=== PATIENT | female | born 1970 | race Caucasian/White ===

== ENCOUNTER 2021-06-19 21:10 | Inpatient (IN) | payer OTHER, SELFPAY ==
[2021-06-19 21:13] VITALS: BP 133/100; PULSE 98; RESP 18; TEMP 36.1; O2SAT 100; BMI 23.1
--- NOTE | 2021-06-19 22:03 | CT_ITS ---
STUDY: CT ABDOMEN AND PELVIS WITH CONTRAST REASON FOR EXAM: Female, 51 years old. abdominal pain RADIATION DOSAGE (If Supplied By Facility): CTDIvol = ( 10.89 ) mGy, DLP = ( 918.71 ) mGycm TECHNIQUE: Transaxial images were obtained from the dome of the diaphragm to the symphysis pubis without oral contrast. IV 100mL Isovue-300 was administered. Sagittal and coronal images were reconstructed. Individualized dose optimization techniques were used for this CT. COMPARISON: None. FINDINGS: The visualized lung bases are unremarkable. The visualized portions of the heart are within normal limits. 13 mm target lesion right lobe of the liver. gallstone. Normal spleen. There is diffuse enlargement of the pancreas with codey-pancreatic edema suggesting acute pancreatitis. Moderate fluid noted throughout the abdomen. No pseudocyst. Normal enhancement of the pancreas. 1.3 cm left adrenal nodule. Right adrenal normal. Normal right kidney. Normal left kidney. Normal visualized stomach. Oral contrast within the small bowel. Oral contrast noted in the colon. Appendix is not clearly identified. Normal abdominal aorta. Normal inferior vena cava. Normal retroperitoneum. Retroaortic left renal vein. Bladder decompressed. Normal abdominal wall. Normal osseous structures. CT/Abdomen/Pelvis W IV Cont ONLY IMPRESSION: Probable acute gallstone pancreatitis. Moderate free fluid. Incidental hepatic lesion as noted above. Recommend follow-up nonemergent hepatic MRI. Left adrenal adenoma. Electronically Signed: Marshall Warren MD at 0:00 EDT , Service support ,
--- NOTE | 2021-06-19 22:08 | EKG12_ITS ---
Test Reason : DYSRYTHMIA Blood Pressure : / mmHG Vent. Rate : 082 BPM Atrial Rate : 082 BPM P-R Int : 112 ms QRS Dur : 082 ms QT Int : 408 ms P-R-T Axes : 034 043 059 degrees QTc Int : 476 ms Normal sinus rhythm Normal ECG Confirmed by ENE HOLLIS, FREDI ([id number]), image editor TRAV FELIX ([id number]) on 06/22/2021 9:31:23 AM Referred By: KEON Confirmed By:FREDI LUQUE MD
--- NOTE | 2021-06-19 22:08 | ED.VIS.GI ---
HPI HPI - GI History of Present Illness Chief Complaint: Abd Pain Informant: patient Narrative Narrative: Patient is a 51-year-old female with history of kidney stones and hypertension presenting with abdominal pain. Patient states yesterday she was feeling like she was having acid reflux and was belching. Last night the pain moved to her epigastric region. She states since then she has had constant pain in her abdomen. She states now the pain is also in her mid/lower abdomen. She states she had some also stated back pain and that part feels like a kidney stone. She notes her urine has been darker but has not noticed any blood. Denies any other urinary symptoms. Has been feeling bloated had associated vomiting. She not really been able to eat or drink too much today. Is not had any blood in her vomit. Is not had any change in her bowel habits and denies any black or blood in her stool. She denies any chest pain but does feel mildly short of breath but contributes that to her pain. She describes the pain is constant, sharp and pressure. She had a hysterectomy and the past so she does not have any menstrual cycles. She tried [id number] antacids with no relief of her symptoms that she came to the emergency room. Prior similar symptoms: No PFSH PFSH Medical History (Updated 06/20/21 @ 06:[address] Blanka Sampson DO) Hypertension Home Medications losartan 100 mg PO DAILY 06/19/21 [History Last Taken 06/19/21] hydrochlorothiazide 12.5 mg PO DAILY 06/20/21 [History Last Taken 06/19/21] Allergy/AdvReac Type Severity Reaction Status Date / Time No Known Allergies Allergy Verified 06/20/21 01:51 Social History Smoking Status: Never smoker ROS ROS ED Constitutional Constitutional ED: Denies chills, fever(s), malaise, sweats or weight loss Eyes Eyes: Denies blurry vision or loss of vision ENT ENT ED: Denies rhinorrhea or sore throat Cardiovascular Cardiovascular: Denies chest pain or dizziness Respiratory/Chest Respiratory/Chest: Denies cough or dyspnea Gastrointestinal Gastrointestinal: Reports abdominal pain, nausea and vomiting; Denies constipation, diarrhea or melena Genitourinary Genitourinary ED: Denies dysuria, hematuria or urinary frequency Musculoskeletal Musculoskeletal: Denies arthralgias or myalgias Integumentary Denies rash or wounds Neurologic Neurologic: Denies focal weakness, headache(s) or weakness Psychiatric Psychiatric: Denies anxiety or behavioral changes EXAM Physical Exam Const Vital Signs: 06/19/21 21:13 06/20/21 00:30 Temperature 96.9 F L Temperature Source Temporal Pulse Rate 98 83 Respiratory Rate 18 16 Blood Pressure 133/100 H 161/100 H Blood Pressure Mean 111 120 Pulse Ox 100 99 Oxygen Delivery Method Room Air Room Air Positive well nourished and well developed General Appearance ED: well developed HEENT Reports moist mucous membranes normocephalic Eyes PERRL and EOMs intact bilaterally Neck supple and no JVD Resp normal respiratory effort and clear to auscultation bilaterally Cardio regular rate, regular rhythm and no murmurs GI non-distended and no masses GI Narrative: Mild pain at McBurney's point as well as in the epigastric region. No rebound tenderness or guarding. Negative Hutton sign. Inspection: Negative for abdominal distention Palpation: soft; Negative for guarding or rigid Back/Spine no CVA tenderness Neuro Sensorium / Orientation: alert, oriented to person, oriented to place and oriented to time Motor Exam: strength 5/5 throughout; Negative for general weakness Psych mental status grossly normal Skin Lesions: no lesions Rashes: no rashes MDM MDM MDM Narrative Medical decision making narrative: Patient is evaluated for worsening epigastric pain. She appears nontoxic in no acute distress. She is tender especially in her epigastric region. She is given IV Zofran, morphine and fluids in the ER. She is hemodynamically stable. Cardiac work-up is unremarkable and nothing this is referred cardiac pain. CBC is normal. CMP is remarkable for mild transaminitis and her lipase is significantly elevated at 5838. I suspect pancreatitis is the cause of her pain. Patient denies any alcohol use. CT of the abdomen and pelvis is concerning for gallstone pancreatitis. Patient is redosed with morphine in the ER and she will be admitted to surgical service for further management of her suspected gallstone pancreatitis. Patient is agreeable with this plan of care. She is hemodynamically stable in the emergency room. Lab Data Attestation: I reviewed the patient's lab results. Labs: Laboratory Results - last 24 hr 06/19/21 06/19/21 06/19/21 22:22 22:22 22:22 WBC 7.2 RBC 3.59 L Hgb 13.6 Hct 39.8 MCV 110.9 H MCH 37.9 H MCHC 34.2 RDW Std Deviation 57.3 H RDW Coeff of Carmela 13.8 Plt Count 211 MPV 9.7 Immature Gran % (Auto) 0.300 Neut % (Auto) 88.6 H Lymph % (Auto) 4.6 L [place] % (Auto) 6.1 Eos % (Auto) 0.0 Baso % (Auto) 0.4 Absolute Neuts (auto) 6.3 Absolute Lymphs (auto) 0.33 L Nucleated RBC % 0 Differential Comment SCANNED Sodium 140 Potassium 3.9 Chloride 100 Carbon Dioxide 33.0 H Anion Gap 7 BUN 13 Creatinine 0.79 Estim Creat Clear Calc 73.57 Est GFR (MDRD) Af Amer 100 Est GFR (MDRD) Non-Af 82 BUN/Creatinine Ratio 16.5 Glucose 127 H Calcium 9.3 Total Bilirubin 0.60 Direct Bilirubin 0.19 AST 153 H ALT 94 H Alkaline Phosphatase 197 H Troponin I High Sens 11 Total Protein 7.3 Albumin 2.7 L Globulin 4.6 H Lipase 5838 H Serum , Qual NEGATIVE Urine Color Urine Clarity Urine pH Ur Specific [place] Urine Protein Urine Glucose (UA) Urine Ketones Urine Occult Blood Urine Nitrite Urine Bilirubin Urine Urobilinogen Ur Leukocyte Esterase Urine RBC Urine WBC Ur Squamous Epith Cells Urine Bacteria Urine Mucus 06/19/21 22:55 WBC RBC Hgb Hct MCV MCH MCHC RDW Std Deviation RDW Coeff of Carmela Plt Count MPV Immature Gran % (Auto) Neut % (Auto) Lymph % (Auto) [place] % (Auto) Eos % (Auto) Baso % (Auto) Absolute Neuts (auto) Absolute Lymphs (auto) Nucleated RBC % Differential Comment Sodium Potassium Chloride Carbon Dioxide Anion Gap BUN Creatinine Estim Creat Clear Calc Est GFR (MDRD) Af Amer Est GFR (MDRD) Non-Af BUN/Creatinine Ratio Glucose Calcium Total Bilirubin Direct Bilirubin AST ALT Alkaline Phosphatase Troponin I High Sens Total Protein Albumin Globulin Lipase Serum , Qual Urine Color Yellow Urine Clarity Cloudy Urine pH 7.0 Ur Specific [place] 1.015 Urine Protein 30 H Urine Glucose (UA) Normal Urine Ketones 50 H Urine Occult Blood 10 H Urine Nitrite Negative Urine Bilirubin 1 H Urine Urobilinogen 1 H Ur Leukocyte Esterase 100 H Urine RBC 0-5 SEEN Urine WBC 5-10 SEEN Ur Squamous Epith Cells 10-25 SEEN Urine Bacteria 0 SEEN Urine Mucus 0 SEEN Radiography Diagnostic Testing: Clinical Impression(s) from Imaging Studies Abdomen/Pelvis CT 06/19/21 22:03 IMPRESSION: Probable acute gallstone pancreatitis. Moderate free fluid. Incidental hepatic lesion as noted above. Recommend follow-up nonemergent hepatic MRI. Left adrenal adenoma. Electronically Signed: Marshall Warren MD at 0:00 EDT , Service support , Rhythm Strip Rhythm Strip: Sinus Rhythm Rate: 82 Ectopy: None EKG Initial EKG: Attestation: I personally reviewed and interpreted this EKG as follows: Interpretation: Sinus Rhythm Comments: Normal sinus rhythm at a rate of 82 Normal axis Normal intervals Normal ST segments Discharge Plan Dx/Rx/DC Orders Clinical Impression: Hypertension, Acute gallstone pancreatitis Disposition Disposition: Acute Care Hospital [facility] Discharge Date/Time: 06/20/21 01:46
[2021-06-19 22:43] LABS: Absolute Lymphocyte Count 0.33 X10^3/uL (0.83-4.51); Absolute Neutrophil Count 6.3 X10^3/uL (2.0-7.7); Basophil# 0.03 X10^3/uL; Basophil% 0.4 % (0-1); Hematocrit 39.8 % (37-47); Hemoglobin 13.6 g/dL (12.0-15.0); Lymphocyte # 0.33 X10^3/ul (0.83-4.51); Lymphocyte % 4.6 % (19-41); Mean Corp Hgb Conc 34.2 g/dL (32-36); Mean Corpuscular Hgb 37.9 pg (27.0-32.0); Mean Corpuscular Volume 110.9 fL (81-99); Mean Platelet Vol. 9.7 fl (6.2-12.0); Monocyte# 0.44 X10^3/uL; Monocyte% 6.1 % (0-10); NRBC Flagged by Analyzer 0 % (0-5); Neutrophil # 6.34 X10^3/uL (2.7-7.7); Neutrophil % 88.6 % (47-70); POSITIVE DIFFERENTIAL YES; Platelet Count 211 K/mm3 (150-450); RBC Distribution Width CV 13.8 % (11.6-14.6); RBC Distribution Width SD 57.3 fl (35.1-43.9); Red Blood Count 3.59 M/mm3 (4.2-5.4); White Blood Count 7.2 K/mm3 (4.4-11.0)
[2021-06-19 22:45] LABS: Differential Indicated SCAN CRITERIA MET
[2021-06-19] MEDS: 0.9% Normal Saline 1,000 ML 1000 ML IV (22:51)
[2021-06-19] MEDS: Ondansetron 4 MG/2 ML Vial IV (22:52)
[2021-06-19] MEDS: Morphine 4 MG/ML Syringe IV (22:52)
[2021-06-19 22:55] LABS: AST(SGOT) 153 U/L (15-37); Alanine Aminotransfer ALT/SGPT 94 U/L (13-56); Albumin, Serum 2.7 g/dL (3.2-5.0); Alkaline Phosphatase 197 U/L (45-117); Anion Gap 7 (5-15); BUN 13 mg/dL (7-18); BUN/Creat Ratio 16.5 RATIO (10-20); Bilirubin, Direct 0.19 mg/dL (0.00-0.30); Calcium,Total 9.3 mg/dL (8.5-10.1); Chloride 100 mmol/L (98-107); Creatinine, Serum 0.79 mg/dL (0.55-1.02); EST Glomerular Filtration Rate 82 mL/min (>60); Est Glom Filt Rate - Afr Amer 100 mL/min (>60); Estimated Creatinine Clearance 73.57 ml/min; Globulin 4.6 g/dL (2.2-4.2); Glucose 127 mg/dL (74-106); Lipase 5838 U/L (73-393); Potassium 3.9 mmol/L (3.5-5.1); Protein, Total 7.3 g/dL (6.4-8.2); Sodium Level 140 mmol/L (136-145); Troponin-I HS 11 pg/mL (3.0-54.0)
[2021-06-19 23:05] LABS: Bacteria 0 SEEN /hpf (None Seen); Mucous, Urine 0 SEEN /hpf (<or=2+)
[2021-06-19 23:06] LABS: Color, Urine Yellow (Yellow); Glucose, Dipstick Normal (Normal); Ketone-Dipstick 50 mg/dl (Negative); Leukocyte Esterase-Dipstick 100 /ul (Negative); Nitrite-Dipstick Negative (Negative); Occult Blood-Urine 10 /ul (Negative); Protein-Dipstick 30 mg/dl (Negative); Specific Gravity, Urine 1.015 (1.002-1.030); Urine Clarity Cloudy (Clear); Urine Urobilinogen 1 mg/dl (Normal)
[2021-06-19 23:09] LABS: Urine Bilirubin Dipstick 1 mg/dL (Negative)
[2021-06-19 23:12] LABS: Red Blood Cells-Urine 0-5 SEEN /hpf (0-5); Squamous Epithelial Cells - UA 10-25 SEEN /hpf (5-10); White Blood Cells 5-10 SEEN /hpf (0-5)
[2021-06-19 23:27] LABS: Differential Comment SCANNED
[2021-06-19 23:46] LABS: Internal QC Validated? YES +Cl - CLEAR BKGD; Pregnancy, Serum, hCG Quali. NEGATIVE Negative
[2021-06-20] VITALS (7 sets, daily range): BP systolic 137–164; BP diastolic 84–106; PULSE 78–91; RESP 16; TEMP 35.8–36.8; O2SAT 95–99; BMI 23.8
[2021-06-20] MEDS: Morphine 4 MG/ML Syringe IV (00:28)
--- NOTE | 2021-06-20 01:13 | HP.PCM_ITS ---
HPI - General HPI Narrative KINGSLEY GOLDMAN, is a 51 F who presents to [facility] with approximately 24 hours of epigastric abdominal pain initially believed to be either reflux or kidney stones. Patient did not experience relief with antacids and decided to present for evaluation. She is notes this is the first experie nce of this pain she has ever had. ED work-up was remarkable for chemistries that showed elevated LFTs, a lipase greater than 5000, and CT imaging that was consistent with acute pancreatitis?gallstone pancreatitis favored. On my evaluation the patient her pain has largely remitted after receiving some pain medications. [facility] Medical History (Updated 06/20/21 @ 01:[address] Subhash Walker MD) Hypertension Home Medications losartan 100 mg PO DAILY 06/19/21 [History Last Taken Unknown] Allergy/AdvReac Type Severity Reaction Status Date / Time No Known Allergies Allergy Verified 06/19/21 21:15 Social History Smoking Status: Unknown if ever smoked Vital Signs Vital Signs Vital Signs: 06/19/21 21:13 06/20/21 00:30 Temperature 96.9 F L Temperature Source Temporal Pulse Rate 98 83 Respiratory Rate 18 16 Blood Pressure 133/100 H 161/100 H Blood Pressure Mean 111 120 Pulse Ox 100 99 Oxygen Delivery Method Room Air Room Air Weight Weight: 135 lb Body Mass Index (BMI) 23.1 Physical Exam Const alert, oriented x3 and no apparent distress General Appearance: cooperative Neck no lymphadenopathy Neck Narrative: Moderate erythema across anterior cervical region Resp normal respiratory effort GI GI Narrative: Average body habitus, no scars, umbilical piercing, soft, nondistended, mildly tender with palpation x4 quadrants Results Lab / Micro Data Result Diagrams: 06/19/21 22:22 06/19/21 22:22 Labs: Laboratory Results - last 24 hr 06/19/21 22:22: WBC 7.2, RBC 3.59 L, Hgb 13.6, Hct 39.8, MCV 110.9 H, MCH 37.9 H , MCHC 34.2, RDW Std Deviation 57.3 H, RDW Coeff of Carmela 13.8, Plt Count 211, MPV 9.7, Immature Gran % (Auto) 0.300, Neut % (Auto) 88.6 H, Lymph % (Auto) 4.6 L, [place] % (Auto) 6.1, Eos % (Auto) 0.0, Baso % (Auto) 0.4, Absolute Neuts (auto) 6.3, Absolute Lymphs (auto) 0.33 L, Nucleated RBC % 0, Differential Comment SCANNED 06/19/21 22:22: Sodium 140, Potassium 3.9, Chloride 100, Carbon Dioxide 33.0 H, Anion Gap 7, BUN 13, Creatinine 0.79, Estim Creat Clear Calc 73.57, Est GFR (MDRD) Af Amer 100, Est GFR (MDRD) Non-Af 82, BUN/Creatinine Ratio 16.5, Glucose 127 H, Calcium 9.3, Total Bilirubin 0.60, Direct Bilirubin 0.19, AST 153 H, ALT 94 H, Alkaline Phosphatase 197 H, Troponin I High Sens 11, Total Protein 7.3, Albumin 2.7 L, Globulin 4.6 H, Lipase 5838 H 06/19/21 22:22: Serum , Qual NEGATIVE 06/19/21 22:55: Urine Color Yellow, Urine Clarity Cloudy, Urine pH 7.0, Ur Specific [place] 1.015, Urine Protein 30 H, Urine Glucose (UA) Normal, Urine Ketones 50 H, Urine Occult Blood 10 H, Urine Nitrite Negative, Urine Bilirubin 1 H, Urine Urobilinogen 1 H, Ur Leukocyte Esterase 100 H, Urine RBC 0-5 SEEN, Urine WBC 5-10 SEEN, Ur Squamous Epith Cells 10-25 SEEN, Urine Bacteria 0 SEEN, Urine Mucus 0 SEEN Radiology Impression Abdomen/Pelvis CT 06/19/21 22:03 IMPRESSION: Probable acute gallstone pancreatitis. Moderate free fluid. Incidental hepatic lesion as noted above. Recommend follow-up nonemergent hepatic MRI. Left adrenal adenoma. Electronically Signed: Marshall Warren MD at 0:00 EDT , Service support , Assessment & Plan Assessment/Plan (1) Acute gallstone pancreatitis: PLAN: This is a 51-year-old female with biochemical and radiographic evidence of acute gallstone pancreatitis. Her pain is minimal for the amount of inflammatory ascites noted on her CT imaging. She also presents with no white c ount but does have left shift per labs. I discussed management of pancreatitis with her to include bowel rest and same?admission cholecystectomy to prevent the 25 to 30% risk of recurrent pancreatitis. She expressed understanding and willingness to proceed with the plan as described. Neuro: As needed acetaminophen, as needed Dilaudid Pulm/CV: As needed hydralazine for systolic blood pressure greater than 170 mmHg FEN/GI: Follow-up CMP and lipase tomorrow. Bowel rest, n.p.o. Heme/ID: Subcu heparin 5000 units 3 times daily. Patient eventually requires preoperative antibiotics for cholecystectomy Endo: No acute issues Proph: Subcutaneous heparin and ambulation Dispo: Admit to inpatient Charges/Coding Visit Charges Inpatient E&M: 38966 Init Hosp L2
[2021-06-20] MEDS: Lactated Ringers 1,000 ML 150 ML IV ×4 (02:04→23:15)
[2021-06-20] MEDS: 0.9% Saline Lock 10 ML Syringe IV (05:29)
[2021-06-20] MEDS: HYDROmorphone 0.5 MG/0.5 ML SYRINGE IV ×5 (05:29→22:40)
[2021-06-20 05:39] LABS: Absolute Neutrophil Count 5.5 X10^3/uL (2.0-7.7); Basophil# 0.02 X10^3/uL; Basophil% 0.3 % (0-1); Eosinophil# 0.01 X10^3/uL; Eosinophils% 0.2 % (0-5); Hematocrit 39.6 % (37-47); Hemoglobin 13.1 g/dL (12.0-15.0); Lymphocyte % 9.1 % (19-41); Mean Corp Hgb Conc 33.1 g/dL (32-36); Mean Corpuscular Hgb 37.2 pg (27.0-32.0); Mean Corpuscular Volume 112.5 fL (81-99); Mean Platelet Vol. 9.6 fl (6.2-12.0); Monocyte# 0.48 X10^3/uL; Monocyte% 7.3 % (0-10); NRBC Flagged by Analyzer 0 % (0-5); Neutrophil # 5.49 X10^3/uL (2.7-7.7); Neutrophil % 82.8 % (47-70); POSITIVE DIFFERENTIAL YES; Platelet Count 202 K/mm3 (150-450); RBC Distribution Width CV 13.9 % (11.6-14.6); RBC Distribution Width SD 58.1 fl (35.1-43.9); Red Blood Count 3.52 M/mm3 (4.2-5.4); White Blood Count 6.6 K/mm3 (4.4-11.0)
[2021-06-20 06:14] LABS: ALB/GLOB Ratio 0.5 RATIO (0.9-2.4); AST(SGOT) 120 U/L (15-37); Alanine Aminotransfer ALT/SGPT 75 U/L (13-56); Albumin, Serum 2.1 g/dL (3.2-5.0); Alkaline Phosphatase 164 U/L (45-117); Anion Gap 6 (5-15); BUN 12 mg/dL (7-18); BUN/Creat Ratio 17.2 RATIO (10-20); Calcium,Total 8.4 mg/dL (8.5-10.1); Chloride 102 mmol/L (98-107); Differential Indicated SCAN CRITERIA MET; EST Glomerular Filtration Rate 94 mL/min (>60); Est Glom Filt Rate - Afr Amer 114 mL/min (>60); Estimated Creatinine Clearance 83.03 ml/min; Globulin 4.2 g/dL (2.2-4.2); Glucose 99 mg/dL (74-106); Lipase 4052 U/L (73-393); Magnesium 2.1 mg/dL (1.6-2.6); Phosphorus 4.2 mg/dL (2.5-4.9); Potassium 3.9 mmol/L (3.5-5.1); Protein, Total 6.3 g/dL (6.4-8.2); Sodium Level 140 mmol/L (136-145)
[2021-06-20 07:23] LABS: Macrocytosis 1+; Platelet Estimate ADEQUATE (ADEQ)
--- NOTE | 2021-06-20 15:38 | PCM.PN.SRG ---
Subjective Subjective Patient seen and examined during rounds. She reports improvement in her pain but states she did wake up with it around 5 AM. She denies any nausea or vomiting. Objective Data Objective Data Vital Signs: Vital Signs Temp Pulse Resp BP Pulse Ox 97.7 F L 89 16 137/84 H 96 06/20/21 14:00 06/20/21 14:00 06/20/21 14:00 06/20/21 14:00 06/20/21 14:00 Oxygen Delivery Method Room Air Weight: 138 lb 7.205 oz Body Mass Index (BMI) 23.8 Intake & Output: Intake and Output for Last 24 Hours 06/18/21 06/19/21 06/20/21 23:59 23:59 23:59 Intake Total 1999 / 1999 Output Total 400 / 400 Balance 1600 / 1600 Lab / Micro Data Result Diagrams: 06/20/21 05:14 06/20/21 05:14 Labs: Laboratory Results - last 24 hr 06/19/21 22:22: WBC 7.2, RBC 3.59 L, Hgb 13.6, Hct 39.8, MCV 110.9 H, MCH 37.9 H, MCHC 34.2, RDW Std Deviation 57.3 H, RDW Coeff of Carmela 13.8, Plt Count 211, MPV 9.7, Immature Gran % (Auto) 0.300, Neut % (Auto) 88.6 H, Lymph % (Auto) 4.6 L, [place] % (Auto) 6.1, Eos % (Auto) 0.0, Baso % (Auto) 0.4, Absolute Neuts (auto) 6.3, Absolute Lymphs (auto) 0.33 L, Nucleated RBC % 0, Differential Comment SCANNED 06/19/21 22:22: Sodium 140, Potassium 3.9, Chloride 100, Carbon Dioxide 33.0 H, Anion Gap 7, BUN 13, Creatinine 0.79, Estim Creat Clear Calc 73.57, Est GFR (MDRD) Af Amer 100, Est GFR (MDRD) Non-Af 82, BUN/Creatinine Ratio 16.5, Glucose 127 H, Calcium 9.3, Total Bilirubin 0.60, Direct Bilirubin 0.19, AST 153 H, ALT 94 H, Alkaline Phosphatase 197 H, Troponin I High Sens 11, Total Protein 7.3, Albumin 2.7 L, Globulin 4.6 H, Lipase 5838 H 06/19/21 22:22: Serum , Qual NEGATIVE 06/19/21 22:55: Urine Color Yellow, Urine Clarity Cloudy, Urine pH 7.0, Ur Specific [place] 1.015, Urine Protein 30 H, Urine Glucose (UA) Normal, Urine Ketones 50 H, Urine Occult Blood 10 H, Urine Nitrite Negative, Urine Bilirubin 1 H, Urine Urobilinogen 1 H, Ur Leukocyte Esterase 100 H, Urine RBC 0-5 SEEN, Urine WBC 5-10 SEEN, Ur Squamous Epith Cells 10-25 SEEN, Urine Bacteria 0 SEEN, Urine Mucus 0 SEEN 06/20/21 05:14: WBC 6.6, RBC 3.52 L, Hgb 13.1, Hct 39.6, MCV 112.5 H, MCH 37.2 H, MCHC 33.1, RDW Std Deviation 58.1 H, RDW Coeff of Carmela 13.9, Plt Count 202, MPV 9.6, Immature Gran % (Auto) 0.300, Neut % (Auto) 82.8 H, Lymph % (Auto) 9.1 L, [place] % (Auto) 7.3, Eos % (Auto) 0.2, Baso % (Auto) 0.3, Absolute Neuts (auto) 5.5, Absolute Lymphs (auto) 0.60 L, Nucleated RBC % 0, Platelet Estimate ADEQUATE, Macrocytosis 1+ 06/20/21 05:14: Sodium 140, Potassium 3.9, Chloride 102, Carbon Dioxide 32.0, Anion Gap 6, BUN 12, Creatinine 0.70, Estim Creat Clear Calc 83.03, Est GFR (MDRD) Af Amer 114, Est GFR (MDRD) Non-Af 94, BUN/Creatinine Ratio 17.2, Glucose 99, Calcium 8.4 L, Phosphorus 4.2, Magnesium 2.1, Total Bilirubin 0.60, AST 120 H, ALT 75 H, Alkaline Phosphatase 164 H, Total Protein 6.3 L, Albumin 2.1 L, Globulin 4.2, Albumin/Globulin Ratio 0.5 L, Lipase 4052 H Radiography Diagnostic Testing: Radiology Impression Abdomen/Pelvis CT 06/19/21 22:03 IMPRESSION: Probable acute gallstone pancreatitis. Moderate free fluid. Incidental hepatic lesion as noted above. Recommend follow-up nonemergent hepatic MRI. Left adrenal adenoma. Electronically Signed: Marshall Warren MD at 0:00 EDT , Service support , Rhythm Strip Rhythm Strip: Sinus Rhythm Rate: 82 Ectopy: None Physical Exam Const oriented x3 and no apparent distress GI GI Narrative: Mildly distended, firmer to palpation, mildly tender to palpation particularly in the epigastrium Assessment & Plan Assessment/Plan (1) Acute gallstone pancreatitis: PLAN: Neuro: As needed acetaminophen, as needed Dilaudid Pulm/CV: As needed hydralazine for systolic blood pressure greater than 170 mmHg FEN/GI: Follow-up CMP and lipase again tomorrow. Clear liquid diet and n.p.o. at midnight for possible cholecystectomy with intraoperative cholangiogram Heme/ID: Subcu heparin 5000 units 3 times daily. Patient eventually requires preoperative antibiotics for cholecystectomy Endo: No acute issues Proph: Subcutaneous heparin and ambulation Dispo: Continue inpatient stay Charges/Coding Visit Charges Inpatient E&M: 72385 Subs Hosp L2
[2021-06-20] MEDS: Heparin Injection (Vial) 5,000 UNIT/ML VIAL 5000 UNIT SC (22:35)
--- NOTE | 2021-06-21 03:14 | PCS.PANDOC ---
PANDEMIC DOCUMENTATION INITIATED: Date: 04/26/2021 Time: 190
[2021-06-21] MEDS: 0.9% Saline Lock 10 ML Syringe IV ×4 (03:44→18:27)
[2021-06-21 03:45] VITALS: PULSE 76; O2SAT 97
[2021-06-21] MEDS: HYDROmorphone 0.5 MG/0.5 ML SYRINGE IV ×3 (03:45→08:29)
[2021-06-21] MEDS: Lactated Ringers 1,000 ML 150 ML IV ×2 (05:47→12:39)
[2021-06-21 06:14] LABS: Absolute Lymphocyte Count 1.17 X10^3/uL (0.83-4.51); Absolute Neutrophil Count 6.5 X10^3/uL (2.0-7.7); Basophil# 0.03 X10^3/uL; Basophil% 0.4 % (0-1); Eosinophil# 0.05 X10^3/uL; Eosinophils% 0.6 % (0-5); Hematocrit 39.1 % (37-47); Hemoglobin 13.1 g/dL (12.0-15.0); Lymphocyte # 1.17 X10^3/ul (0.83-4.51); Lymphocyte % 13.8 % (19-41); Mean Corp Hgb Conc 33.5 g/dL (32-36); Mean Corpuscular Hgb 38.1 pg (27.0-32.0); Mean Corpuscular Volume 113.7 fL (81-99); Monocyte# 0.71 X10^3/uL; Monocyte% 8.4 % (0-10); NRBC Flagged by Analyzer 0 % (0-5); Neutrophil # 6.49 X10^3/uL (2.7-7.7); Neutrophil % 76.2 % (47-70); Platelet Count 197 K/mm3 (150-450); RBC Distribution Width CV 13.4 % (11.6-14.6); RBC Distribution Width SD 56.4 fl (35.1-43.9); Red Blood Count 3.44 M/mm3 (4.2-5.4); White Blood Count 8.5 K/mm3 (4.4-11.0)
[2021-06-21 06:24] LABS: Partial Thromboplast Time 29.4 Seconds (24.1-36.2)
[2021-06-21 06:38] LABS: ALB/GLOB Ratio 0.6 RATIO (0.9-2.4); AST(SGOT) 82 U/L (15-37); Alanine Aminotransfer ALT/SGPT 59 U/L (13-56); Albumin, Serum 2.3 g/dL (3.2-5.0); Alkaline Phosphatase 154 U/L (45-117); Anion Gap 6 (5-15); BUN 11 mg/dL (7-18); Calcium,Total 8.6 mg/dL (8.5-10.1); Chloride 99 mmol/L (98-107); Creatinine, Serum 0.65 mg/dL (0.55-1.02); EST Glomerular Filtration Rate 103 mL/min (>60); Est Glom Filt Rate - Afr Amer 125 mL/min (>60); Estimated Creatinine Clearance 89.41 ml/min; Globulin 4.1 g/dL (2.2-4.2); Glucose 86 mg/dL (74-106); Lipase 2577 U/L (73-393); Magnesium 1.9 mg/dL (1.6-2.6); Phosphorus 2.5 mg/dL (2.5-4.9); Potassium 3.4 mmol/L (3.5-5.1); Protein, Total 6.4 g/dL (6.4-8.2); Sodium Level 136 mmol/L (136-145)
--- NOTE | 2021-06-21 06:41 | NURSING ---
Pt reports passing gas x 2 this am. Pain improved since last medicated at 0345. Pt thinks she has not been experiencing as much difficulty taking deep breaths. O2 removed while this nurse left room to gather pain medication. Dilaudid given IVP slowly. SpO2 checked on left 4th finger w/ initial reading at 92%, then gradually drops down in 1-2% increments to 84%. O2 reapplied at 2 lpm via nc. Encouraged pt to continue deep breathing exercises. Call light w/ in reach. Will continue to monitor.
--- NOTE | 2021-06-21 06:54 | NURSING ---
AM dose of Heparin subcut held at this time if any surgical intervention to be attempted today.
[2021-06-21 07:57] VITALS: BP 157/91; PULSE 69; RESP 18; TEMP 36.2; O2SAT 97
[2021-06-21] MEDS: Heparin Injection (Vial) 5,000 UNIT/ML VIAL 5000 UNIT SC ×3 (08:03→22:54)
--- NOTE | 2021-06-21 09:55 | CASEMGMT ---
ZAHEER STEVE Face to Face with patient for initial transition planning/care coordination assessment. RN CM introduced self and role at [facility]. Patient lying in bed, alert and oriented. Patient willing to participate in assessment and is able to answer all questions appropriately. Care providers, pharmacy, and demographics verified. Patient wishes to discharge home, denies need for home health at this time. Patient states she has no further needs or concerns at this time. CM to follow for discharge planning needs that may arise. PCP:Ronal Specialists: None Preferred Pharmacy: [facility] Insurance: MMO Prescription Benefit: yes Living Will/HPOA: none LNOK: significant other Living Arrangements: Patient lives with boyfriend in a split level home. Patient state she is independent and able to ambulate stairs. Patient states she will be staying with mother for a few days. Transportation: self, boyfriend, mother DME/HHC: Patient states she has a raised toilet at home. Denies previous HHC. Disposition Plan: Patient to discharge home with family support and follow-up plans in place. Kelly PARK, RN, CM
--- NOTE | 2021-06-21 10:16 | PCM.PN.SRG ---
Subjective Subjective Patient seen and examined during AM rounds. She is hospital day 2 for admission for gallstone pancreatitis. She states that she woke up at approximately 330 this morning with significant abdominal pain. She states she was also placed on some nasal cannula at this point for some shortness of breath. Yesterday she did tolerate her liquid diet without any nausea or vomiting before she was made n.p.o. in anticipation of the procedure today. Objective Data Objective Data Vital Signs: Vital Signs Temp Pulse Resp BP Pulse Ox 97.1 F L 69 18 157/91 H 97 06/21/21 07:57 06/21/21 07:57 06/21/21 07:57 06/21/21 07:57 06/21/21 07:57 Oxygen Flow Rate (L/min) 2 Oxygen Delivery Method Room Air Weight: 138 lb 7.205 oz Body Mass Index (BMI) 23.8 Intake & Output: Intake and Output for Last 24 Hours 06/19/21 06/20/21 06/21/21 23:59 23:59 23:59 Intake Total 3887.5 / 3887.5 977.5 / 977.5 Output Total 1300 / 1300 Balance 2587.5 / 2587.5 977.5 / 977.5 Lab / Micro Data Result Diagrams: 06/21/21 05:46 06/21/21 05:46 Labs: Laboratory Results - last 24 hr 06/21/21 05:46: APTT 29.4 06/21/21 05:46: Sodium 136, Potassium 3.4 L, Chloride 99, Carbon Dioxide 31.0, Anion Gap 6, BUN 11, Creatinine 0.65, Estim Creat Clear Calc 89.41, Est GFR (MDRD) Af Amer 125, Est GFR (MDRD) Non-Af 103, BUN/Creatinine Ratio 17.0, Glucose 86, Calcium 8.6, Phosphorus 2.5, Magnesium 1.9, Total Bilirubin 0.50, AST 82 H, ALT 59 H, Alkaline Phosphatase 154 H, Total Protein 6.4, Albumin 2.3 L, Globulin 4.1, Albumin/Globulin Ratio 0.6 L, Lipase 2577 H 06/21/21 05:46: WBC 8.5, RBC 3.44 L, Hgb 13.1, Hct 39.1, MCV 113.7 H, MCH 38.1 H, MCHC 33.5, RDW Std Deviation 56.4 H, RDW Coeff of Carmela 13.4, Plt Count 197, MPV 10.0, Immature Gran % (Auto) 0.600, Neut % (Auto) 76.2 H, Lymph % (Auto) 13.8 L, [place] % (Auto) 8.4, Eos % (Auto) 0.6, Baso % (Auto) 0.4, Absolute Neuts (auto) 6.5, Absolute Lymphs (auto) 1.17, Nucleated RBC % 0 Rhythm Strip Rhythm Strip: Sinus Rhythm Rate: 82 Ectopy: None Physical Exam Const oriented x3 Constitutional Narrative: Mildly uncomfortable Resp normal respiratory effort GI GI Narrative: Patient's abdomen is mildly distended, tender to palpation in the epigastrium Assessment & Plan Assessment/Plan (1) Acute gallstone pancreatitis: PLAN: Patient is hospital day 2 for admission for gallstone pancreatitis. She seems to be having some more pain related to her pancreatitis process today. However, her biochemistries reflect a resolving process as her lipase is approximately half of her admission value and her LFTs continue to downtrend. Given the persistence of her abdominal pain and new mild oxygen requirement, I have postponed her case until tomorrow. Will resume clear liquids today and n.p.o. at midnight. Acute gallstone pancreatitis: PLAN: Neuro: As needed acetaminophen, as needed Dilaudid Pulm/CV: As needed hydralazine for systolic blood pressure greater than 170 mmHg FEN/GI: Follow-up CMP and lipase again tomorrow. Clear liquid diet and n.p.o. at midnight for possible cholecystectomy with intraoperative cholangiogram Heme/ID: Subcu heparin 5000 units 3 times daily. Patient eventually requires preoperative antibiotics for cholecystectomy Endo: No acute issues Proph: Subcutaneous heparin and ambulation Dispo: Continue inpatient stay Charges/Coding Visit Charges Inpatient E&M: 23996 Subs Hosp L2
[2021-06-21 14:02] VITALS: BP 135/91; PULSE 110; RESP 18; TEMP 36.3; O2SAT 98
[2021-06-21] MEDS: HYDROmorphone 1 MG/ML Syringe IV ×2 (14:05→18:26)
[2021-06-21] MEDS: Losartan Potassium 100 MG Tablet PO (18:15)
[2021-06-21] MEDS: Polyethylene Glycol 3350 17 GM PACKET PO (18:15)
[2021-06-21] MEDS: Lactated Ringers 1,000 ML 125 ML IV (19:05)
[2021-06-21 20:10] VITALS: O2SAT 95
[2021-06-22] VITALS (11 sets, daily range): BP systolic 104–184; BP diastolic 70–106; PULSE 76–100; RESP 16–18; TEMP 36.3–37.4; O2SAT 86–100; BMI 23.8
[2021-06-22] MEDS: 0.9% Saline Lock 10 ML Syringe IV (03:48)
[2021-06-22] MEDS: HYDROmorphone 1 MG/ML Syringe IV ×2 (03:49→06:24)
[2021-06-22] MEDS: hydrALAZINE 20 MG/ML Vial 10 MG IV (06:25)
[2021-06-22 06:36] LABS: Absolute Lymphocyte Count 0.85 X10^3/uL (0.83-4.51); Absolute Neutrophil Count 5.8 X10^3/uL (2.0-7.7); Basophil# 0.03 X10^3/uL; Basophil% 0.4 % (0-1); Eosinophil# 0.04 X10^3/uL; Eosinophils% 0.5 % (0-5); Hematocrit 34.2 % (37-47); Hemoglobin 11.5 g/dL (12.0-15.0); Lymphocyte # 0.85 X10^3/ul (0.83-4.51); Lymphocyte % 11.3 % (19-41); Mean Corp Hgb Conc 33.6 g/dL (32-36); Mean Corpuscular Volume 112.9 fL (81-99); Mean Platelet Vol. 9.7 fl (6.2-12.0); Monocyte# 0.81 X10^3/uL; Monocyte% 10.7 % (0-10); NRBC Flagged by Analyzer 0 % (0-5); Neutrophil # 5.78 X10^3/uL (2.7-7.7); Neutrophil % 76.6 % (47-70); Platelet Count 167 K/mm3 (150-450); RBC Distribution Width CV 13.2 % (11.6-14.6); RBC Distribution Width SD 55.8 fl (35.1-43.9); Red Blood Count 3.03 M/mm3 (4.2-5.4); White Blood Count 7.6 K/mm3 (4.4-11.0)
[2021-06-22 06:49] LABS: Partial Thromboplast Time 31.4 Seconds (24.1-36.2)
[2021-06-22 07:30] LABS: ALB/GLOB Ratio 0.5 RATIO (0.9-2.4); AST(SGOT) 63 U/L (15-37); Alanine Aminotransfer ALT/SGPT 42 U/L (13-56); Albumin, Serum 1.7 g/dL (3.2-5.0); Alkaline Phosphatase 123 U/L (45-117); Anion Gap 10 (5-15); BUN 8 mg/dL (7-18); BUN/Creat Ratio 19.5 RATIO (10-20); Calcium,Total 8.2 mg/dL (8.5-10.1); Chloride 99 mmol/L (98-107); Creatinine, Serum 0.41 mg/dL (0.55-1.02); EST Glomerular Filtration Rate 174 mL/min (>60); Est Glom Filt Rate - Afr Amer 211 mL/min (>60); Estimated Creatinine Clearance 141.75 ml/min; Globulin 3.7 g/dL (2.2-4.2); Glucose 63 mg/dL (74-106); Lipase 667 U/L (73-393); Magnesium 1.7 mg/dL (1.6-2.6); Phosphorus 2.8 mg/dL (2.5-4.9); Potassium 3.8 mmol/L (3.5-5.1); Protein, Total 5.4 g/dL (6.4-8.2); Sodium Level 136 mmol/L (136-145)
[2021-06-22] MEDS: hydroCHLOROthiazide 12.5mg 12.5 MG PO (08:08)
[2021-06-22] MEDS: Losartan Potassium 100 MG Tablet PO (08:08)
[2021-06-22] MEDS: Lactated Ringers 1,000 ML 125 ML IV ×3 (08:08→17:38)
--- NOTE | 2021-06-22 13:25 | PCM.PN.SRG ---
Subjective Subjective Patient seen and examined during AM rounds. She reports some more breakthrough pain early this morning but this is now improved. She had some hypertension to systolic blood pressure of 180s but was given as needed hydralazine and her home medications such that her blood pressure now is 140 systolic. She has been n.p.o. since midnight in anticipation of her procedure today. She received MiraLAX yesterday for constipation but has not yet had a bowel movement. Objective Data Objective Data Vital Signs: Vital Signs Temp Pulse Resp BP Pulse Ox 97.4 F L 91 16 144/83 H 97 06/22/21 09:00 06/22/21 09:00 06/22/21 09:00 06/22/21 09:00 06/22/21 09:00 Oxygen Flow Rate (L/min) 2 Oxygen Delivery Method Room Air Weight: 138 lb 7.205 oz Body Mass Index (BMI) 23.8 Intake & Output: Intake and Output for Last 24 Hours 06/20/21 06/21/21 06/22/21 23:59 23:59 23:59 Intake Total 3887.5 / 3887.5 3542.5 / 3542.5 1616.67 / 1616.67 Output Total 1300 / 1300 400 / 475 975 / 975 Balance 2587.5 / 2587.5 3142.5 / 3067.5 641.67 / 641.67 Lab / Micro Data Result Diagrams: 06/22/21 06:05 06/22/21 06:05 Labs: Laboratory Results - last 24 hr 06/22/21 06:05: Sodium 136, Potassium 3.8, Chloride 99, Carbon Dioxide 27.0, Anion Gap 10, BUN 8, Creatinine 0.41 L, Estim Creat Clear Calc 141.75, Est GFR (MDRD) Af Amer 211, Est GFR (MDRD) Non-Af 174, BUN/Creatinine Ratio 19.5, Glucose 63 L, Calcium 8.2 L, Phosphorus 2.8, Magnesium 1.7, Total Bilirubin 0.40, AST 63 H, ALT 42, Alkaline Phosphatase 123 H, Total Protein 5.4 L, Albumin 1.7 L, Globulin 3.7, Albumin/Globulin Ratio 0.5 L, Lipase 667 H 06/22/21 06:05: WBC 7.6, RBC 3.03 L, Hgb 11.5 L, Hct 34.2 L, MCV 112.9 H, MCH 38.0 H, MCHC 33.6, RDW Std Deviation 55.8 H, RDW Coeff of Carmela 13.2, Plt Count 167, MPV 9.7, Immature Gran % (Auto) 0.500, Neut % (Auto) 76.6 H, Lymph % (Auto) 11.3 L, [place] % (Auto) 10.7 H, Eos % (Auto) 0.5, Baso % (Auto) 0.4, Absolute Neuts (auto) 5.8, Absolute Lymphs (auto) 0.85, Nucleated RBC % 0 06/22/21 06:05: APTT 31.4 Micro: Microbiology 06/22/21 06:15 Nasal Secretion SARS-CoV-2 Antigen (Rapid) - Final Rhythm Strip Rhythm Strip: Sinus Rhythm Rate: 82 Ectopy: None Physical Exam Const no apparent distress Resp normal respiratory effort Resp Narrative: Back to inspiring room air GI GI Narrative: Mildly distended, soft, minimally tender to palpation in the epigastrium Assessment & Plan Assessment/Plan (1) Acute gallstone pancreatitis: PLAN: Patient is hospital day 3 for admission for gallstone pancreatitis. She seems to be doing much better from a symptom standpoint with less abdominal pain and no longer requiring oxygen. She states she did have a breakthrough episode at approximately 330 this morning but has been better since. Her blood pressure was elevated just after this but between controlling her pain and giving her as needed hydralazine this is improved. Furthermore, patient biochemically continues to improve near normal LFTs and a rapid decline in her lipase today to 667 from 2500 yesterday. We will plan to proceed with laparoscopic cholecystectomy and intraoperative cholangiogram later today. Additionally dealing with some mild constipation and she is now receiving MiraLAX scheduled for this issue. Acute gallstone pancreatitis: PLAN: Neuro: As needed acetaminophen, as needed Dilaudid Pulm/CV: As needed hydralazine for systolic blood pressure greater than 170 mmHg. Home losartan and hydrochlorothiazide ordered. FEN/GI: Follow-up CMP and lipase again tomorrow. Laparoscopic cholecystectomy with intraoperative cholangiogram today then will resume diet. MiraLAX for constipation. Heme/ID: Subcu heparin 5000 units 3 times daily. Preoperative antibiotics for cholecystectomy Endo: No acute issues Proph: Subcutaneous heparin and ambulation Dispo: Continue inpatient stay
--- NOTE | 2021-06-22 13:30 | GALL_PTH ---
PATIENT: KINGSLEY GOLDMAN LOC: MS2 U#:[id number] AGE/SX: 51/F [place] [facility] [place]: Dr. Subhash Walker MD : 1970 BED: 1 DIS: 06/23/2021 SPEC #: [id number] RECD: 06/23/21 08:59 STATUS: ERIC BARRETO #: [id number] MATTIE: 06/22/21 13:[address]: Subhash Walker DEPT: SURGICAL PATHOLOGY RECD BY: Anselmo Moreno Tissues: Gallbladder, NOS Procedures: Surgery Specimen Level III HEADER OPERATION: Laparoscopic cholecystectomy with IOC PRE-OP DIAGNOSIS: Acute gallstone pancreatitis TISSUE SUBMITTED: Gallbladder MICROSCOPIC DIAGNOSIS Gallbladder, cholecystectomy: Minimal chronic cholecystitis. See comment. BOBBY:dom 06/24/2021 COMMENT No stones are identified in the container or in the gallbladder. MICROSCOPIC DESCRIPTION Slides are reviewed. GROSS DESCRIPTION Received is one container labeled with the patient's name and designated gallbladder. The specimen consists of a gallbladder measuring 8 cm in length and up to 4 cm in diameter. The external surface is pink-basilio, smooth and glistening for the most part. Focally it is granular, hemorrhagic and contains cautery artifact. The gallbladder contains green-yellow mucoid bile. No stones are identified in the container or in the gallbladder. The mucosa is bile-stained and without any mass lesions. The gallbladder wall measures up to 0.1 cm in thickness. [employer] sections from the gallbladder and the cystic duct are submitted in one cassette. / SJ:rg 06/23/21 TC:3 CPT: 73956
[2021-06-22] MEDS: Cefazolin 2 GM in 0.9% Normal Saline 100 ML IV (14:07)
[2021-06-22] MEDS: Bupivacaine Mpf 0.5% 30 ML VIAL (14:18)
--- NOTE | 2021-06-22 14:30 | RAD_ITS ---
CLINICAL HISTORY: Female, 51 years old. Gallstone pancreatitis. PROCEDURE: CHOLANGIOGRAM - intraoperative FLUOROSCOPY TIME (if supplied): 9 seconds TECHNIQUE: Fluoroscopic guidance was provided in the OR during the performance of an intraoperative cholangiogram. 54 images were presented for interpretation. The images demonstrate a catheter in the cystic duct stump. Injection of contrast opacifies the intra and extrahepatic biliary ductal system. There is no filling defect stricture or dilatation. There is free spillage of contrast into the duodenum. Please refer to the operative report for further details. RAD/Cholangiogram/ O R,Initial IMPRESSION: Fluoroscopy provided during the performance of a intraoperative cholangiogram. Electronically Signed: Devin Ochoa DO at 19:47 EDT Tel [phone], Service support ,
--- NOTE | 2021-06-22 16:59 | OP.PCM_ITS ---
Problems Associated Problem List Diagnoses (1) Acute gallstone pancreatitis: (2) Cholecystitis: Report of Operation Date of Procedure: 06/22/21 Pre-Operative Diagnosis: Gallstone pancreatitis Post-Operative Diagnosis: Gallstone pancreatitis with cholecystitis Surgery/Procedure Performed:: Laparoscopic cholecystectomy with intraoperative cholangiogram Surgeon: Subhash Walker bundle helper: Dereje Glass Type of Anesthesia: General/Supplemental Anesthesiologist: Stuart Hendrickson Specimen's removed: Gallbladder Estimated Blood Loss (mL): 25 Description of Procedure: After proper identification in the preoperative holding area the patient was brought to the operating room where she was positioned supine on the operating room table. Preoperative DVT prophylaxis had been administered on the floor and skin prophylaxis antibiotics were a dministered (patient had been just previously administered Zosyn given plans for biliary instrumentation). General anesthesia was then induced. Patient's abdomen was prepped and draped in usual sterile fashion. A formal timeout was conducted to confirm both patient and the procedure. Procedure was begun with a supraumbilical incision which was extended deeply down to the level of the fascia. The fascia was elevated and incised, as well as the peritoneum. A finger sweep was performed to ensure there were no underlying adhesions and a 12 mm balloon trocar was inserted. Pneumoperitoneum was established at 15 mmHg. 3 additional trochars were placed in the epigastrium (12 mm) and in the right upper quadrant (2 x 5 mm). Inspection of the peritoneum revealed no inadvertent injury to the viscera below. There was, however, very minimal intra-abdominal space given the edema of the retroperitoneum. There was also large volume of thin, yellow abdominal ascites related to patient's resolving pancreatitis. The gallbladder was visualized with adherent omentum. The gallbladder fundus was then grasped and elevated cephalad. The adherent omentum did not easily stripped off of the gallbladder surface so it required a combination of cautery and sharp dissection was used to safely remove this shroud from the gallbladder. Then, using careful dissection the peritoneum was opened and the structures of the hepatocystic triangle were delineated. Once the critical view of safety was obtained with a dominant posterior cystic artery, the cystic duct was singly clipped and partially divided. A 14-gauge Angiocath was introduced in the right upper quadrant under laparoscopic vision and a cholangiocatheter was passed through this. Despite multiple attempts with milking the cystic duct retrograde to remove any stones, the cholangiocatheter would not pass. Therefore a smaller metal catheter was placed through a separate, more cephalad, stab incision and this did feet into the cystic duct with some traction. A single clip was placed across the cystic duct to hold his catheter in place and the cholangiogram was obtained. Cholangiogram showed antegrade filling of the common bile duct into the duodenum without filling defect. In a retrograde direction there was filling of the right and left hepatic ducts. Satisfied with this result, the clip across the cystic duct was removed and the catheter was withdrawn. The cystic duct was then triply clipped and divided. The same process was used for the cystic artery. The gallbladder was then removed from the gallbladder fossa with the use of electrocautery. Selective electrocautery was used to obtain hemostasis in the gallbladder fossa. The gallbladder was placed in an Endo Catch bag and removed from the peritoneum via the 12 mm subxiphoid port. Morison's pouch was irrigated and the effluent was suctioned free of the peritoneum. Hemostasis was again confirmed. Pneumoperitoneum was evacuated and the fascia of the 12 mm port sites was closed with 0 Vicryl in a [id number] fashion. A total of 30 mL of half percent bupivacaine was injected at the port sites for postoperative pain control. The skin of each port site was then closed in subcuticular fashion using 4-0 Monocryl. Steri-Strips and OpSite bandages were applied as dressings. Patient tolerated the procedure well without any apparent complications. On emergence from their anesthetic the patient was taken to PACU for ongoing recovery. Procedures Digestive 40xxx-49xxx: 47026 Laparo cholecystectomy/graph
[2021-06-22] MEDS: Acetaminophen 325 MG Tablet 650 MG PO (17:52)
[2021-06-23 01:17] VITALS: BP 116/76; PULSE 88; RESP 16; TEMP 36.8; O2SAT 92
[2021-06-23] MEDS: Acetaminophen 325 MG Tablet 650 MG PO (01:20)
[2021-06-23] MEDS: Lactated Ringers 1,000 ML 125 ML IV (01:20)
[2021-06-23 05:13] VITALS: BP 130/78; PULSE 90; RESP 16; TEMP 36.6; O2SAT 92
[2021-06-23] MEDS: Heparin Injection (Vial) 5,000 UNIT/ML VIAL 5000 UNIT SC (05:15)
[2021-06-23 06:55] LABS: Absolute Lymphocyte Count 0.87 X10^3/uL (0.83-4.51); Absolute Neutrophil Count 6.1 X10^3/uL (2.0-7.7); Basophil# 0.01 X10^3/uL; Basophil% 0.1 % (0-1); Eosinophil# 0.02 X10^3/uL; Eosinophils% 0.2 % (0-5); Hematocrit 35.6 % (37-47); Hemoglobin 11.8 g/dL (12.0-15.0); Lymphocyte # 0.87 X10^3/ul (0.83-4.51); Lymphocyte % 10.5 % (19-41); Mean Corp Hgb Conc 33.1 g/dL (32-36); Mean Corpuscular Hgb 37.3 pg (27.0-32.0); Mean Corpuscular Volume 112.7 fL (81-99); Mean Platelet Vol. 9.3 fl (6.2-12.0); Monocyte# 1.19 X10^3/uL; Monocyte% 14.4 % (0-10); NRBC Flagged by Analyzer 0 % (0-5); Neutrophil # 6.12 X10^3/uL (2.7-7.7); Neutrophil % 74.1 % (47-70); Platelet Count 235 K/mm3 (150-450); RBC Distribution Width CV 13.2 % (11.6-14.6); RBC Distribution Width SD 54.9 fl (35.1-43.9); Red Blood Count 3.16 M/mm3 (4.2-5.4); White Blood Count 8.3 K/mm3 (4.4-11.0)
[2021-06-23 07:37] LABS: ALB/GLOB Ratio 0.4 RATIO (0.9-2.4); AST(SGOT) 58 U/L (15-37); Alanine Aminotransfer ALT/SGPT 37 U/L (13-56); Albumin, Serum 1.7 g/dL (3.2-5.0); Alkaline Phosphatase 113 U/L (45-117); Anion Gap 10 (5-15); BUN 10 mg/dL (7-18); BUN/Creat Ratio 19.4 RATIO (10-20); Calcium,Total 8.5 mg/dL (8.5-10.1); Chloride 100 mmol/L (98-107); Creatinine, Serum 0.52 mg/dL (0.55-1.02); EST Glomerular Filtration Rate 134 mL/min (>60); Est Glom Filt Rate - Afr Amer 162 mL/min (>60); Estimated Creatinine Clearance 111.77 ml/min; Globulin 3.9 g/dL (2.2-4.2); Glucose 95 mg/dL (74-106); Lipase 587 U/L (73-393); Protein, Total 5.6 g/dL (6.4-8.2); Sodium Level 133 mmol/L (136-145)
[2021-06-23 08:32] VITALS: BP 117/74; PULSE 100; RESP 12; TEMP 36.7; O2SAT 97
[2021-06-23] MEDS: Polyethylene Glycol 3350 17 GM PACKET PO (09:43)
[2021-06-23] MEDS: hydroCHLOROthiazide 12.5mg 12.5 MG PO (09:43)
[2021-06-23] MEDS: Magnesium Hydroxide 30 ML UDC PO (09:43)
[2021-06-23] MEDS: Losartan Potassium 100 MG Tablet PO (09:44)
[2021-06-23 09:48] VITALS: PULSE 97; RESP 14
--- NOTE | 2021-06-23 10:44 | PN.SURG_ITS ---
Subjective Subjective Patient seen and examined during AM rounds. She is found sitting upright in bed and smiling. She states that she feels well this morning aside from feeling tight and some soreness in the upper aspect of her abdomen. She states she did well with her clear liquid diet but has grown tired of it. She has still not had a bowel movement since her admission. Objective Data Objective Data Vital Signs: Vital Signs Temp Pulse Resp BP Pulse Ox 98.0 F 97 14 117/74 97 06/23/21 08:32 06/23/21 09:48 06/23/21 09:48 06/23/21 08:32 06/23/21 08:32 Oxygen Flow Rate (L/min) 2 Oxygen Delivery Method Room Air Weight: 138 lb 7.205 oz Body Mass Index (BMI) 23.8 Intake & Output: Intake and Output for Last 24 Hours 06/21/21 06/22/21 06/23/21 23:59 23:59 23:59 Intake Total 3542.5 / 3542.5 2617.92 / 2617.92 1962.5 / 1962.5 Output Total 400 / 475 1974 / 1974 Balance 3142.5 / 3067.5 642.92 / 642.92 1962.5 / 1962.5 Lab / Micro Data Result Diagrams: 06/23/21 06:45 06/23/21 06:45 Labs: Laboratory Results - last 24 hr 06/23/21 06:45: WBC 8.3, RBC 3.16 L, Hgb 11.8 L, Hct 35.6 L, MCV 112.7 H, MCH 37.3 H, MCHC 33.1, RDW Std Deviation 54.9 H, RDW Coeff of Carmela 13.2, Plt Count 235, MPV 9.3, Immature Gran % (Auto) 0.700, Neut % (Auto) 74.1 H, Lymph % (Auto) 10.5 L, [place] % (Auto) 14.4 H, Eos % (Auto) 0.2, Baso % (Auto) 0.1, Absolute Neuts (auto) 6.1, Absolute Lymphs (auto) 0.87, Nucleated RBC % 0 06/23/21 06:45: Sodium 133 L, Potassium 4.0, Chloride 100, Carbon Dioxide 23.0, Anion Gap 10, BUN 10, Creatinine 0.52 L, Estim Creat Clear Calc 111.77, Est GFR (MDRD) Af Amer 162, Est GFR (MDRD) Non-Af 134, BUN/Creatinine Ratio 19.4, G lucose 95, Calcium 8.5, Total Bilirubin 0.50, AST 58 H, ALT 37, Alkaline Phos phatase 113, Total Protein 5.6 L, Albumin 1.7 L, Globulin 3.9, Albumin/Globulin Ratio 0.4 L, Lipase 587 H Micro: Microbiology 06/22/21 06:15 Nasal Secretion SARS-CoV-2 Antigen (Rapid) - Final Radiography Diagnostic Testing: Radiology Impression Cholangiogram 06/22/21 14:30 IMPRESSION: Fluoroscopy provided during the performance of a intraoperative cholangiogram. Electronically Signed: Devin Ochoa DO at 19:47 EDT Tel [phone], Service support , Rhythm Strip Rhythm Strip: Sinus Rhythm Rate: 82 Ectopy: None Physical Exam Const no apparent distress Resp normal respiratory effort GI GI Narrative: Soft, nondistended, appropriately tender about port site incisions which remain dressed with operative dressings. There is no drainage to these dressings. Assessment & Plan Assessment/Plan (1) Acute gallstone pancreatitis: PLAN: Patient is hospital day 4 for admission for gallstone pancreatitis. She is postoperative day 1 from laparoscopic cholecystectomy with intraoperative cholangiogram. The cholangiogram confirmed her labs that there is no filling defect in the biliary tree. Her gallbladder was acutely inflamed and consistent with cholecystitis. She has expected soreness this morning but otherwise appears appropriate. Her labs reflect an ongoing decrease in her LFTs and some slight improvement in her lipase. She continues to deal with some constipation and requests a promotility agent. Acute gallstone pancreatitis: PLAN: Neuro: As needed acetaminophen, as needed Dilaudid?add oxycodone 5 mg every 6 hours as needed for stop pain and attempt to transition to p.o. Pulm/CV: As needed hydralazine for systolic blood pressure greater than 170 mmHg. Home losartan and hydrochlorothiazide ordered. FEN/GI: Follow-up CMP and lipase again tomorrow. Advance to regular, low-fat diet. MiraLAX plus milk of magnesia for constipation. Heme/ID: Subcu heparin 5000 units 3 times daily. No need for ongoing antibiotic therapy Endo: No acute issues Proph: Subcutaneous heparin and ambulation Dispo: Assess for possible discharge later today versus tomorrow Charges/Coding Visit Charges Inpatient E&M: 99256 Subs Hosp L2
--- NOTE | 2021-06-23 13:49 | PCM.DC ---
Discharge Instructions Diet Discharge Diet: Light diet - advance as tolerated Activity Discharge Activity: May Not Drive (3 days or while taking narcotic pain medication) and May Shower Lifting Restrictions: 15 pounds Dressing / Incision Call your doctor if your incision/area has: Continuous Slow Oozing, Sudden Increased Bleeding, Increased Pain/ Swelling, Increased Redness, Foul Smelling Discharge and Swelling at the incision site Call your doctor if you observe: Fever of 101 or Higher Remove Dressing in: 1 day (Remove plastic dressing in 1 day. Leave steri-strips in place) Cleanse incision/area with: Soap & Water Follow Up Care Please Follow Up With: Kyara Walker MD When: 1 week. Please call [phone] to schedule this follow-up appointment. Test Results: Test results from this visit will be discussed in further detail at your follow-up appointment, if applicable. Discharge Plan Admission Admit Date/Time: 06/20/21 01:04 Primary Reason for Your Visit: Gallstone pancreatitis Attending Provider: Kyara Walker Instructions Additional Instructions / Restrictions: Please obtain a CMP and Lipase lab draw in 1 week prior to your appointment with Dr. Walker. You may go to our lab as you walk into our building. Please call [phone] to schedule a follow-up appointment within [address] Walker. Discharge Orders/Prescriptions Prescriptions: New oxycodone 5 mg Tablet 5 mg PO Q6H PRN PRN (Reason: Pain Score 6-10) 2 Days Qty: 6 RF: 0 Continued losartan 100 mg Tablet 100 mg PO DAILY RF: 0 hydrochlorothiazide 12.5 mg tablet 12.5 mg PO DAILY RF: 0 Other Ambulatory Orders: Comprehensive Metabolic Profil (Routine) Timeframe: 1 Week Facility: [facility] - Location: Laboratory Ordered By: Shawna TORRES Lipase (Routine) Timeframe: 1 Week Facility: [facility] - Location: Laboratory Ordered By: Shawna TORRES Referrals / Follow Up: KYARA PICKENS [Other] Kyara Walker MD [STAFF PHYSICIAN] - (Follow-up with Dr. Walker in 1 week) Disposition Disposition (needs filled in before D/C Order can be placed): Home, Self Care
--- NOTE | 2021-06-23 13:53 | DS.PCM_ITS ---
Providers Date of Admission: 06/20/21 Primary Care Physician: SUBHASH PICKENS Reason For Visit: GALLSTONE PANCREATITIS Diagnosis Discharge Diagnosis (1) Acute gallstone pancreatitis: Status: Acute Code(s): K85.10 - Biliary acute pancreatitis without necrosis or infection (2) Cholecystitis: Status: Acute Code(s): K81.9 - Cholecystitis, unspecified Medications at Discharge Home Medications losartan 100 mg PO DAILY 06/19/21 hydrochlorothiazide 12.5 mg PO DAILY 06/20/21 oxycodone 5 mg PO Q6H PRN PRN 2 Days #6 tab 06/23/21 Hospital Course Operations cholecystecomy Summary of Care Provided Minutes Spent on Discharge: 20 Hospital Course: Patient presented with abdominal pain in the midepigastric into her back. CT scan of the ab/pel demonstrated acute gallstone pancreatitis, hepatic lesion, and left adrenal adenoma. Patient had elevated liver enzymes and lipase level in the 5,000 range. Patient had her diet reduced. Dr. Walker performed a laparoscopic cholecystectomy with intraoperative cholangiogram on 06/22/21. Patient tolerated the procedure well. Upon discharge patient's lipase had decreased to 587. Her pain was well controlled. She was tolerating her current diet. Her blood pressure was under control. She has been instructed to obtain lab work and follow-up with Dr. Walker in 1 week. Weight / BMI Weight Weight: 138 lb 7.205 oz Body Mass Index (BMI) 23.8 ABG / Lab / Microbiology Data Result Diagrams: 06/23/21 06:45 06/23/21 06:45 Laboratory: Laboratory Results - last 24 hr 06/23/21 06:45: WBC 8.3, RBC 3.16 L, Hgb 11.8 L, Hct 35.6 L, MCV 112.7 H, MCH 37.3 H, MCHC 33.1, RDW Std Deviation 54.9 H, RDW Coeff of Carmela 13.2, Plt Count 235, MPV 9.3, Immature Gran % (Auto) 0.700, Neut % (Auto) 74.1 H, Lymph % (Auto) 10.5 L, [place] % (Auto) 14.4 H, Eos % (Auto) 0.2, Baso % (Auto) 0.1, Absolute Neuts (auto) 6.1, Absolute Lymphs (auto) 0.87, Nucleated RBC % 0 06/23/21 06:45: Sodium 133 L, Potassium 4.0, Chloride 100, Carbon Dioxide 23.0, Anion Gap 10, BUN 10, Creatinine 0.52 L, Estim Creat Clear Calc 111.77, Est GFR (MDRD) Af Amer 162, Est GFR (MDRD) Non-Af 134, BUN/Creatinine Ratio 19.4, Glucose 95, Calcium 8.5, Total Bilirubin 0.50, AST 58 H, ALT 37, Alkaline Phosphatase 113, Total Protein 5.6 L, Albumin 1.7 L, Globulin 3.9, Albumin/Globulin Ratio 0.4 L, Lipase 587 H Microbiology: Microbiology 06/22/21 06:15 Nasal Secretion SARS-CoV-2 Antigen (Rapid) - Final Radiography Diagnostic Testing: Radiology Impression Cholangiogram 06/22/21 14:30 IMPRESSION: Fluoroscopy provided during the performance of a intraoperative cholangiogram. Electronically Signed: Devin Ochoa DO at 19:47 EDT Tel [phone], Service support , D/C Instructions Discharge Diet: Light diet - advance as tolerated Call your doctor if your incision/area has: Continuous Slow Oozing, Sudden Increased Bleeding, Increased Pain/ Swelling, Increased Redness, Foul Smelling Discharge and Swelling at the incision site Call your doctor if you observe: Fever of 101 or Higher Cleanse incision/area with: Soap & Water Please Follow Up With: Subhash Walker MD When: 1 week. Please call [phone] to schedule this follow-up appointment. Meaningful Use Info Meaningful Use Diagnoses (Choose all that apply): None applicable Discharge Plan Admission Admit Date/Time: 06/20/21 01:04 Primary Reason for Your Visit: Gallstone pancreatitis Attending Provider: Subhash Walker Instructions Additional Instructions / Restrictions: Please obtain a CMP and Lipase lab draw in 1 week prior to your appointment with Dr. Walker. You may go to our lab as you walk into our building. Please call [phone] to schedule a follow-up appointment within [address] Walker. Discharge Orders/Prescriptions Prescriptions: New oxycodone 5 mg Tablet 5 mg PO Q6H PRN PRN (Reason: Pain Score 6-10) 2 Days Qty: 6 RF: 0 Continued losartan 100 mg Tablet 100 mg PO DAILY RF: 0 hydrochlorothiazide 12.5 mg tablet 12.5 mg PO DAILY RF: 0 Other Ambulatory Orders: Comprehensive Metabolic Profil (Routine) Timeframe: 1 Week Facility: [facility] - Location: Laboratory Ordered By: Shawna TORRES Lipase (Routine) Timeframe: 1 Week Facility: [facility] - Location: Laboratory Ordered By: Shawna TORRES Referrals / Follow Up: SUBHASH PICKENS [Other] Subhash Walker MD [STAFF PHYSICIAN] - (Follow-up with Dr. Walker in 1 week) Disposition Disposition (needs filled in before D/C Order can be placed): Home, Self Care Charges/Coding Visit Charges Inpatient E&M: 61028 Disch Hosp (no charge)
[2021-06-23 14:55] VITALS: BP 128/93; PULSE 100; RESP 18; TEMP 36.9; O2SAT 96
== END 2021-06-23 15:20 | disposition home or self-care (01) | DRG 418 ==
LOC: ED 22:40 → MS2 06-20 01:23
PROVIDERS: Anesthesiology; Admitting Provider Surgery; Emergency Provider Emergency Medicine; Visit Provider Surgery
PROC: 0FT44ZZ Resection of Gallbladder, Percutaneous Endoscopic Approach (ICD-10-PCS; CPT 47610; principal; 2021-06-22 13:15)
DX: K85.10 Biliary acute pancreatitis without necrosis or infection (principal); K81.0 Acute cholecystitis; I10 Essential (primary) hypertension; Z79.899 Other long term (current) drug therapy; K59.00 Constipation, unspecified
CPT/HCPCS: 36415; 74177; 74300; 76000; 80048; 80053; 80076; 81001; 83690; 83735; 84100; 84484; 84703; 85025; 85730; 87426; 88304; 93005; 99285; J7030; J7050; J7120; Q9967; A4216; J2405

== ENCOUNTER → 2021-06-30 09:23 | Outpatient (CLI) | payer OTHER, SELFPAY ==
[2021-06-30 10:18] LABS: ALB/GLOB Ratio 0.6 RATIO (0.9-2.4); AST(SGOT) 90 U/L (15-37); Alanine Aminotransfer ALT/SGPT 54 U/L (13-56); Albumin, Serum 2.7 g/dL (3.2-5.0); Alkaline Phosphatase 188 U/L (45-117); Anion Gap 10 (5-15); BUN 5 mg/dL (7-18); BUN/Creat Ratio 7.5 RATIO (10-20); Calcium,Total 8.7 mg/dL (8.5-10.1); Chloride 100 mmol/L (98-107); Creatinine, Serum 0.66 mg/dL (0.55-1.02); EST Glomerular Filtration Rate 100 mL/min (>60); Est Glom Filt Rate - Afr Amer 121 mL/min (>60); Globulin 4.6 g/dL (2.2-4.2); Glucose 93 mg/dL (74-106); Lipase 937 U/L (73-393); Potassium 2.9 mmol/L (3.5-5.1); Protein, Total 7.3 g/dL (6.4-8.2); Sodium Level 140 mmol/L (136-145)
== END ==
PROVIDERS: Referring Provider Physician Assistant; Visit Provider Physician Assistant
DX: K85.10 Biliary acute pancreatitis without necrosis or infection (principal)
CPT/HCPCS: 36415; 80053; 83690

== ENCOUNTER → 2021-07-02 07:49 | Outpatient (CLI) | payer OTHER, SELFPAY ==
[2021-07-02 08:30] LABS: ALB/GLOB Ratio 0.6 RATIO (0.9-2.4); AST(SGOT) 70 U/L (15-37); Alanine Aminotransfer ALT/SGPT 51 U/L (13-56); Albumin, Serum 2.8 g/dL (3.2-5.0); Alkaline Phosphatase 193 U/L (45-117); Anion Gap 11 (5-15); BUN 12 mg/dL (7-18); BUN/Creat Ratio 13.5 RATIO (10-20); Calcium,Total 9.1 mg/dL (8.5-10.1); Chloride 97 mmol/L (98-107); Creatinine, Serum 0.89 mg/dL (0.55-1.02); EST Glomerular Filtration Rate 72 mL/min (>60); Est Glom Filt Rate - Afr Amer 87 mL/min (>60); Globulin 4.6 g/dL (2.2-4.2); Glucose 103 mg/dL (74-106); Lipase 600 U/L (73-393); Potassium 3.3 mmol/L (3.5-5.1); Protein, Total 7.4 g/dL (6.4-8.2); Sodium Level 137 mmol/L (136-145)
== END ==
PROVIDERS: Referring Provider Surgery; Visit Provider Surgery
DX: K85.10 Biliary acute pancreatitis without necrosis or infection (principal)
CPT/HCPCS: 36415; 80053; 83690